=== PATIENT | male | born 1955 | race Caucasian/White ===

== ENCOUNTER 2019-12-18 08:04 | Day surgery (SDC) | payer OTHER ==
[~2019-12-18] VITALS: Ht 190.5 cm; Wt 109.4 kg
[~2019-12-18 08:04] MED LIST: Aspir 8181 MG PO; HYDCHL25 PO; HYDROCHLOROTH12.5 MG PO; METO25ER PO; MULTI VITAMIN1 EACH PO; MULTIVITAMINS1 EAC3 PO; NAPR220 PO; Prinivil10 MG PO
== END 2019-12-18 10:14 | disposition home or self-care (01) ==
LOC: ORSCSDS 08:04
PROVIDERS: Surgery
PROC: 0DJD8ZZ Inspection of Lower Intestinal Tract, Via Natural or Artificial Opening Endoscopic (ICD-10-PCS; principal; 2019-12-18 09:15)
DX: Z12.11 Encounter for screening for malignant neoplasm of colon (principal); Z86.010 Personal history of colon polyps; I10 Essential (primary) hypertension; E78.5 Hyperlipidemia, unspecified; Z79.82 Long term (current) use of aspirin; Z79.899 Other long term (current) drug therapy
CPT/HCPCS: J2704; J7120

== ENCOUNTER 2021-04-01 19:40 | Emergency (ER) | payer MEDICARE, BC ==
[~2021-04-01] VITALS: Ht 190.5 cm; Wt 113.4 kg
[2021-04-01 20:13] LABS: BASOPHILS ABSOLUTE AUTO 0.04 K/mm3 (0.00-0.23); BASOPHILS PERCENT AUTO 1 % (0-2); EOSINOPHILS ABSOLUTE AUTO 0.43 K/mm3 (0.00-0.68); EOSINOPHILS PERCENT AUTO 5 % (0-6); Hemoglobin 14.8 g/dL (13.5-17.5); IMMATURE GRAN ABSOLUTE AUTO 0.02 K/mm3 (0.00-0.10); IMMATURE GRAN PERCENT AUTO 0 % (0-1); LYMPHOCYTES ABSOLUTE AUTO 2.48 K/mm3 (0.84-5.20); LYMPHOCYTES PERCENT AUTO 31 % (21-46); MONOCYTES ABSOLUTE AUTO 0.84 K/mm3 (0.16-1.47); MONOCYTES PERCENT AUTO 10 % (4-13); Mean Corpuscular HGB 29.2 pg (26.0-34.0); Mean Corpuscular HGB Conc 33.6 g/dL (31.5-36.5); Mean Corpuscular Volume 87 fL (80-100); NEUTROPHILS ABSOLUTE AUTO 4.33 K/mm3 (1.96-9.15); NEUTROPHILS PERCENT AUTO 53 % (41-73); Platelet Count 231 K/mm3 (150-400); RDW Coefficient Variation 12.9 % (11.7-14.2); RDW Standard Deviation 40.6 fL (35.1-46.3); Red Blood Cell Count 5.06 M/mm3 (4.30-5.90); White Blood Cell Count 8.14 K/mm3 (4.00-11.30)
[2021-04-01 20:31] LABS: Alanine Aminotransfer (ALT/SGP 24 U/L (12-78); Albumin, Blood 3.8 g/dL (3.4-5.0); Albumin/Globulin Ratio 1.1 (0.8-1.8); Alk Phos 78 U/L (50-136); Anion Gap 5 mmol/L (6-16); Aspartate Aminotrans (AST/SGOT 30 U/L (12-37); Bilirubin, Total 0.4 mg/dL (0.1-1.0); Blood Urea Nitrogen 25 mg/dL (8-24); CO2, Blood 29 mmol/L (21-32); Calcium, Blood 8.8 mg/dL (8.5-10.1); Chloride, Blood 104 mmol/L (98-108); Creatinine, Blood 1.19 mg/dL (0.60-1.20); Globulin, Blood 3.5 g/dL (2.2-4.0); Glomerular Filtration Rate >60 (60-); Glucose, Blood 100 mg/dL (70-99); Sodium, Blood 138 mmol/L (136-145); Total Protein, Blood 7.3 g/dL (6.4-8.2)
[2021-04-01] MEDS ORDERED: PRED20 PO (21:07)
== END 2021-04-01 21:20 | disposition home or self-care (01) ==
LOC: ER 19:40
PROVIDERS: Physician Assistant
DX: G51.0 Bell's palsy (principal); G47.30 Sleep apnea, unspecified; I48.91 Unspecified atrial fibrillation; Z79.899 Other long term (current) drug therapy; Z79.82 Long term (current) use of aspirin
CPT/HCPCS: 36415; 70450; 80053; 85025; 93005; 93010; 99284-25; J7512

== ENCOUNTER 2022-03-05 08:32 | Day surgery (SDC) | payer MEDICARE, BC ==
[~2022-03-05] VITALS: Ht 190.5 cm; Wt 115.7 kg
[~2022-03-05 08:32] MED LIST changes: +ELIQUIS5 M2 PO; +PRED20 PO
--- NOTE | 2022-03-05 09:25 | NUR ---
Ambulatory in Day Surgery. Surgical site prepped with 2% Chlorhexidine cloth wipe. History, Chart, Medications and Allergies reviewed before start of procedure. Lungs clear T/O to Auscultation. Patient confirms NPO status and agrees with scheduled surgery. Patient States Post-Procedure ride home has been arranged [place].
--- NOTE | 2022-03-05 15:37 | NUR ---
03/05/221536 Nelsy Segura RESUMED ROBOTIC HERNIA REPAIR AT [address] MALDONADO BEGAN CLOSING THE OPEN INGUINAL REPAIR INCISION. MESH WAS PLACED DURING ROBOTIC PROTION OF SURGERY.
--- NOTE | 2022-03-05 18:28 | NUR ---
Patient up to Ambulate independently. Gait steady. Discharge instructions reviewed with patient. Patient verbalizes understanding. Copy given to patient to take home. Dressing to procedure site clean, dry, intact with no visible drainage, swelling, erythema or bruising noted. Patient States Post-Procedure ride home has been arranged. Discharged via wheelchair to private car for ride home. PT NEEDED EXTRA TIME IN STEP DUE TO HR REACHING IN THE 150'S AT TIMES, BUT NOT SUSTAINING, DR MARQUIS GAVE PT DILTIAZEM IN PACU WITHOUT MUCH CHANGE. PT STOPPED BEING DIAPHORETIC, NEVER C/O OF C/P OR PRESSURE OR SOB. ABLE TO WALK IN DEPARTMENT WITHOUT TROUVBLE. GAVE 37.5MG PO METROPOLOL PER DR MALDONADO 20 MINUTES BEFORE HE DECIDED TO LET PATIENT GO HOME. PT ALSO RECEIVEDONE PAIN PILL FOOD, SNACK. PT AND MICH TO VERBALIZE SIGNS AND SYMPTOMS TO CALL 911. [employer] AND [employer] SUPPORT SENT HOME WITH PT ALONG WITH ALL OF THEIR BELONINGS.
== END 2022-03-05 23:16 | disposition home or self-care (01) ==
LOC: ORSCMMR 08:32 → ORD 10:00 → ORSCMMR 10:00
PROVIDERS: Surgery
PROC: 8E0W4CZ Robotic Assisted Procedure of Trunk Region, Percutaneous Endoscopic Approach (ICD-10-PCS; principal; 2022-03-05 10:00)
PROC: 0YJ64ZZ Inspection of Left Inguinal Region, Percutaneous Endoscopic Approach (ICD-10-PCS; principal; 2022-03-05 10:00)
DX: K40.30 Unilateral inguinal hernia, with obstruction, without gangrene, not specified as recurrent (principal); D17.6 Benign lipomatous neoplasm of spermatic cord; I10 Essential (primary) hypertension; G47.33 Obstructive sleep apnea (adult) (pediatric); Z79.899 Other long term (current) drug therapy
CPT/HCPCS: 49650; S2900; 88304; A9270; C1781; J0690; J1100; J2250; J2370; J2405; J2704; J2795; J3010; J7120